=== PATIENT | male | born 2000 | race Caucasian/White ===

== ENCOUNTER → 2021-06-27 | Outpatient (CLI) | payer OTHER ==
[2021-06-27 09:24] LABS: CREATININE 1.1 mg/dL (0.6-1.3)
== END ==
LOC: M.LAB 05-29 14:24 → M.CT 06-20 09:00 → M.LAB 06-20 09:00 → M.PUL 06-20 09:00 → M.LAB 06-20 09:30
PROVIDERS: ATTEND Internal Medicine Cardiovascular Disease
DX: Z01.812 Encounter for preprocedural laboratory examination (principal); M54.2 Cervicalgia; R55 Syncope and collapse; R06.83 Snoring; R40.0 Somnolence; R07.2 Precordial pain; R94.31 Abnormal electrocardiogram [ECG] [EKG]